=== PATIENT | female | born 1995 | race Caucasian/White ===

== ENCOUNTER → 2016-11-23 | Outpatient (CLI) | payer OTHER, MEDICAID ==
--- NOTE | 2016-11-26 16:29 | [facility] ---
[facility] NAME: OPAL SINGH [facility] REFERENCE #: [id number] : 1995 DATE OF VISIT: 11/23/16 PRIMARY CARE: JERRY Rosales at the [facility]. CHIEF COMPLAINT: Follow up autonomic dysfunction with lightheadedness. HISTORY: The patient was last seen by me at [facility] in December. She had had symptoms of chest pain, palpitations shown not to be arrhythmia and I thought she had postural tachycardia syndrome with lightheadedness. She was treated with atenolol and then changed to metoprolol and had done very well regarding her symptoms of postural tachycardia syndrome. She is seen again at our [facility] of November 23, 2016. She says she has been doing great but lately she has felt dizzy. She describes some symptoms that sound like vertigo, like a sense that the room is tilting. She had one spell when she was driving. She has had no spells in the past week. She says it began in early September and was happening a couple of times a week or more for a while, but now seems to have stopped. There is no palpitation with this. She has no palpitations at other times either. She denies chest pain. She does sometimes see little white spots, so this may be presyncope. She has not fainted. Her symptoms are only occurring when she is upright and usually sitting. They are not exercise associated. Her energy is good. 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 MEDICATIONS: Metoprolol 25 mg XL and oral contraceptive Ortho Tri-Cyclen. ALLERGIES TO MEDICATION: None. SOCIAL HISTORY: She lives alone in a trailer, is a plate stacker hand, but she has a steady boyfriend and friends who help to look after her if she has any need for social help. Her mother does live in [place]. PAST MEDICAL HISTORY: She had TMJ operation a month or so ago by Dr. Catherine, the oral surgeon in [place]. She did well with this and says she is happy with her result. REVIEW OF SYSTEMS: Positive for popping her toes, but her joints are not painful. She has minimal headaches. She has not been losing weight. Review of systems is negative for vision problems, hearing problems, wheezing or coughing, GI symptoms, urinary symptoms, or abnormal menses. She is on her menstrual period now. No skin issues. FAMILY HISTORY: Her sister has orthostatic intolerance. PHYSICAL EXAMINATION: Weight 123 pounds, height 64 inches, heart rate 65, blood pressure 111/68. General exam: Is a delightful young woman who appears quite well and has excellent color and perfusion. I did her physical exam a with our [facility] female staff member in attendance in the room at [facility]. She has no pathologic murmur. Her jugular venous pulses are normal. Carotids are normal without bruit. Second heart splitting is physiologic. Abdomen is without hepatomegaly, splenomegaly, mass, or bruit. Gait and coordination are normal. Abdominal aortic pulsation and pulses are strong. She has no acrocyanosis or edema of the extremities. IMPRESSION: I THINK SHE EITHER HAS PRESYNCOPE AND LIGHTHEADEDNESS WHICH IS A FORM OF ORTHOSTATIC INTOLERANCE OR SHE HAS VERTIGO. I THINK THESE SYMPTOMS MAY HAVE PREDATED HER TMJ SURGERY. PLAN: Because she had postural tachycardia symptom features in the past, I will try a low dose of Florinef at 0.05 or one half pill per day each morning and see if this eliminates her symptoms. If it does she may be able to avoid seeing ENT or another consultation for vertigo workup. If the Florinef does not help I would certainly recommend that she goes to see someone who is a vertigo specialist and she may benefit from treatment of vertigo medication rather than the medication for orthostatic intolerance. She is to lie down if she gets significant presyncope. I instructed her not to drive. She is to call me with how her response goes to the Florinef and we will decide if she needs to be seen for a vertigo specialist physician. I wrote all this out for her so she has the instructions on a piece of paper written out and they are to call me with a symptom report. ARIANNE HAINES MD [id number] PHY#: [id number] ID: [id number] JOB#: [id number] ACCT: [id number] cc:ARIANNE HAINES MD [facility], [facility].[place] > [facility]
== END ==
LOC: PC 10:36
PROVIDERS: ATTEND Pediatrics Pediatric Cardiology
DX: I95.1 Orthostatic hypotension (principal)

== ENCOUNTER → 2017-02-08 | Outpatient (CLI) | payer MEDICAID, OTHER ==
--- NOTE | 2017-02-11 13:12 | [facility] ---
[facility] NAME: OPAL SINGH [facility] REFERENCE #: [id number] : 1995 DATE OF VISIT: 02/08/2017 PRIMARY CARE: [facility] office, Gilda Valencia CHIEF COMPLAINT: Followup autonomic dysfunction with lightheadedness. HISTORY: This patient has had mild common orthostatic intolerance with postural lightheadedness. She has done very well on Florinef and low dose metoprolol. Her metoprolol dose is 25 mg daily and her Florinef is only 1/2 pill or 0.05 mg daily. However, when she runs out of her Florinef, she feels lightheaded again and she really wants to continue the medication. She functions normally with it. 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 She has not had palpitations or chest pain. She has not had full fainting. She is not having vertigo. MEDICATIONS: Ortho Tri-Cyclen, metoprolol succinate 25 mg, Florinef 0.05 mg daily. ALLERGIES TO MEDICATION: None. 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 She has a steady boyfriend who came with her today. Her mother lives in [place]. PAST MEDICAL HISTORY: TMJ operation in the past. REVIEW OF SYSTEMS: Positive for wearing glasses and wearing contacts. She has some knee joint issues. Otherwise the ten-point system review is negative for any other systems. FAMILY HISTORY: Positive for asthma in her sister. Her sister has also had some orthostatic intolerance. PHYSICAL EXAMINATION: Weight 125 pounds. Height 65 inches. Blood pressure 111/65. Heart rate 59. General exam is a pleasant, slender, well appearing young woman who has good color and perfusion and no pallor. Thyroid not enlarged or nodular. Lungs clear bilateral. Precordial activity normal. Cardiac auscultation reveals no abnormal murmur, click, or gallop. Abdomen without hepatomegaly, splenomegaly, or mass. Distal pulse is normal. IMPRESSION: She has excellent response to very low dose Florinef and does not need have a potassium checked on this level of Florinef. Her low dose metoprolol was well tolerated without excessive bradycardia. The combination of these medications allows her to function very normally in her job. I recommend we continue them for a year and then see her back to see if she can eventually wean off. ARIANNE HAINES MD [id number] PHY#: [id number] ID: [id number] JOB#: [id number] ACCT: [id number] cc:ARIANNE HAINES MD [facility] SYSTEMSofiya
== END ==
LOC: PC 13:28
PROVIDERS: ATTEND Pediatrics Pediatric Cardiology
DX: R42 Dizziness and giddiness (principal)